=== PATIENT | female | born 1965 | race African-American/Black ===

== ENCOUNTER → 2020-12-16 | Day surgery (SDC) | payer OTHER ==
[~2020-12-16] VITALS: Ht 167.6 cm; Wt 101.6 kg
[~2020-12-16] MED LIST: NORVASC 5MG TABL5 MG PO; PRINIVIL20 MG PO
[2020-12-16 09:43] LABS: HCT 42.3 % (37.0-47.0); HGB 13.8 g/dl (12.5-16.0); MCH 28.7 pg (25.0-31.0); MCHC 32.6 g/dL (32.0-36.0); MCV 87.9 fL (78.0-100.0); MPV 9.2 fL (6.0-9.5); RBC 4.81 M/uL (4.20-5.40); RDW 12.4 % (11.5-14.0); WBC 7.7 K/uL (4.0-10.5)
[2020-12-16 10:06] LABS: ALBUMIN 3.9 g/dL (3.4-5.0); BILIRUBIN - TOTAL 0.5 mg/dL (0.2-1.0); BUN/CREAT RATIO (CALC) 19.2 RATIO; CREATININE 0.73 mg/dL (0.51-0.95); GLOBULIN (CALCULATION) 4.1 g/dL; POTASSIUM 3.3 mmol/L (3.5-5.1)
== END | disposition home or self-care (01) ==
LOC: FAS 08:54
PROVIDERS: Surgery
DX: Z12.11 Encounter for screening for malignant neoplasm of colon (principal); Z12.12 Encounter for screening for malignant neoplasm of rectum; Z86.010 Personal history of colon polyps; Z85.118 Personal history of other malignant neoplasm of bronchus and lung; Z87.891 Personal history of nicotine dependence; R32 Unspecified urinary incontinence; M79.10 Myalgia, unspecified site; E11.9 Type 2 diabetes mellitus without complications; Z79.84 Long term (current) use of oral hypoglycemic drugs; E66.9 Obesity, unspecified; Z68.36 Body mass index [BMI] 36.0-36.9, adult; I10 Essential (primary) hypertension
CPT/HCPCS: 36415; 80053; J2250; J2704; J7120